=== PATIENT | male | born 1995 | race Two or more races ===

== ENCOUNTER 2016-10-04 10:14 | Emergency (ER) | payer MEDICAID ==
[~2016-10-04] VITALS: Ht 170.2 cm; Wt 59.0 kg
[2016-10-04] MEDS ORDERED: KETOROLAC 30 MG/1 ML ONE (11:32)
[2016-10-04] MEDS ORDERED: KETOROLAC 30 MG/1 ML IM ONE (12:00)
[2016-10-04 13:56] VITALS: BP 125/58
== END 2016-10-04 14:17 | disposition home or self-care (01) ==
LOC: ED 12:38
DX: R07.89 Other chest pain (principal); J15.9 Unspecified bacterial pneumonia
CPT/HCPCS: 71020; 96372; 99284; J1885